=== PATIENT | male | born 1945 | race Caucasian/White ===

== ENCOUNTER 2022-08-12 19:24 | Emergency (ER) | payer MEDICARE, BC ==
[2022-08-12 20:40] VITALS: BP 140/86; PULSE 68
== END 2022-08-12 20:38 | disposition home or self-care (01) ==
LOC: MW.ED 19:24
DX: B02.9 Zoster without complications (principal); I10 Essential (primary) hypertension; Z79.899 Other long term (current) drug therapy
CPT/HCPCS: 99282; 99283

== ENCOUNTER 2023-01-11 09:36 | Emergency (ER) | payer MEDICARE, BC ==
[2023-01-11] MEDS ORDERED: Sodium Chloride 0.9% 10 ML Syringe FLUSH PRN (09:53)
[2023-01-11] MEDS ORDERED: Sodium Chloride 0.9% 2.5 ML Syringe FLUSH PRN (09:53)
[2023-01-11] MEDS ORDERED: Sodium Chloride 0.9% 500 ML IV SCH (10:00)
[2023-01-11] MEDS: Diltiazem 25 MG/5 ML SDV IVPUSH ONE ×3 (10:06→10:13)
[2023-01-11 10:41] LABS: BASOPHILS PERCENT AUTO 0.8 % (0.0-1.5); EOSINOPHILS ABSOLUTE AUTO 0.1 K/uL (0.0-0.7); EOSINOPHILS PERCENT AUTO 1.7 % (0.0-7.0); HEMATOCRIT 41.3 % (38.0-50.0); HEMOGLOBIN 14.8 g/dL (13.0-17.0); LYMPHOCYTES ABSOLUTE AUTO 1.3 K/uL (0.6-2.4); LYMPHOCYTES PERCENT AUTO 25.4 % (16.0-40.0); MEAN CORPUSCULAR HEMOGLOBIN 31.7 pg (27.0-32.0); MEAN CORPUSCULAR HGB CONC 35.8 g/dL (31.0-37.0); MEAN CORPUSCULAR VOLUME 88.4 fL (80.0-98.0); MONOCYTES ABSOLUTE AUTO 0.7 K/uL (0.0-0.8); MONOCYTES PERCENT AUTO 12.9 % (0.0-15.0); NEUTROPHILS ABSOLUTE AUTO 3.1 K/uL (1.4-5.7); NEUTROPHILS PERCENT AUTO 59.2 % (48.0-80.0); PLATELET COUNT,PLT 161 K/uL (150-400); RED BLOOD CELL COUNT 4.67 M/uL (4.50-5.90); WHITE BLOOD CELL COUNT,WBC 5.19 K/uL (4.0-11.0)
[2023-01-11 10:55] LABS: INR 1.01 (0.86-1.11)
[2023-01-11 11:12] LABS: A/G RATIO 1.4 (0.9-1.6); ALBUMIN 4.5 g/dL (3.4-5.0); CALCIUM 9.7 mg/dL (8.5-10.1); CARBON DIOXIDE,CO2 26.2 mmol/L (21.0-32.0); CREATININE 1.4 mg/dL (0.8-1.3); EST CRCL DRUG DOSING (CG) 45.63 mL/min; POTASSIUM,K 4.6 mmol/L (3.5-5.1); PROTEIN TOTAL,TP 7.7 g/dL (6.4-8.2); TSH ULTRASENSITIVE 1.22 uIU/mL (0.36-3.74)
[2023-01-11] MEDS ORDERED: Apixaban 5 MG Tab PO ONE (12:34)
[2023-01-11 12:56] VITALS: BP 160/67; PULSE 63
== END 2023-01-11 13:09 | disposition home or self-care (01) ==
LOC: MW.ED 09:36
DX: I48.91 Unspecified atrial fibrillation (principal); I10 Essential (primary) hypertension; Z79.01 Long term (current) use of anticoagulants
CPT/HCPCS: 36415; 71045; 80053; 83690; 83880; 84443; 84484; 85025; 85610; 93005; 96361; 96374; 99285; A9270; J3490; J7040; 93010; 99284

== ENCOUNTER 2023-02-01 07:42 | Emergency (ER) | payer MEDICARE, BC ==
[2023-02-01] MEDS ORDERED: Diltiazem 25 MG/5 ML SDV IVPUSH ONE (07:57)
[2023-02-01 08:06] LABS: BASOPHILS ABSOLUTE AUTO 0.1 K/uL (0.0-0.1); BASOPHILS PERCENT AUTO 2.4 % (0.0-1.5); EOSINOPHILS ABSOLUTE AUTO 0.1 K/uL (0.0-0.7); EOSINOPHILS PERCENT AUTO 2.1 % (0.0-7.0); HEMATOCRIT 39.2 % (38.0-50.0); LYMPHOCYTES ABSOLUTE AUTO 1.2 K/uL (0.6-2.4); LYMPHOCYTES PERCENT AUTO 31.2 % (16.0-40.0); MEAN CORPUSCULAR HEMOGLOBIN 31.3 pg (27.0-32.0); MEAN CORPUSCULAR HGB CONC 35.7 g/dL (31.0-37.0); MEAN CORPUSCULAR VOLUME 87.5 fL (80.0-98.0); MONOCYTES ABSOLUTE AUTO 0.6 K/uL (0.0-0.8); MONOCYTES PERCENT AUTO 14.4 % (0.0-15.0); NEUTROPHILS ABSOLUTE AUTO 1.9 K/uL (1.4-5.7); NEUTROPHILS PERCENT AUTO 49.9 % (48.0-80.0); NRBC ABSOLUTE 0 K/uL; PLATELET COUNT,PLT 176 K/uL (150-400); RED BLOOD CELL COUNT 4.48 M/uL (4.50-5.90); WHITE BLOOD CELL COUNT,WBC 3.81 K/uL (4.0-11.0)
[2023-02-01 08:32] LABS: A/G RATIO 1.2 (0.9-1.6); CALCIUM 9.5 mg/dL (8.5-10.1); CARBON DIOXIDE,CO2 24.6 mmol/L (21.0-32.0); CREATININE 1.4 mg/dL (0.8-1.3); EST CRCL DRUG DOSING (CG) 49.94 mL/min; MAGNESIUM 1.9 mg/dL (1.8-2.4); POTASSIUM,K 3.4 mmol/L (3.5-5.1); PROTEIN TOTAL,TP 7.4 g/dL (6.4-8.2); TSH ULTRASENSITIVE 1.32 uIU/mL (0.36-3.74)
[2023-02-01] MEDS ORDERED: Potassium Chloride 20 MEQ Tab.ER PO ONE (08:34)
[2023-02-01 09:15] VITALS: BP 124/77; PULSE 76
== END 2023-02-01 09:30 | disposition home or self-care (01) ==
LOC: MW.ED 07:42
DX: I48.91 Unspecified atrial fibrillation (principal); I10 Essential (primary) hypertension; Z79.01 Long term (current) use of anticoagulants
CPT/HCPCS: 36415; 71045; 80053; 83735; 83880; 84443; 84484; 85025; 93005; 96374; 99285; A9270; J3490; 93010; 99284

== ENCOUNTER 2024-06-27 16:11 | Observation (INO) | payer MEDICARE, BC ==
[2024-06-27] MEDS ORDERED: Sodium Chloride 0.9% 2.5 ML Syringe FLUSH PRN (16:16)
[2024-06-27] MEDS ORDERED: Sodium Chloride 0.9% 10 ML Syringe FLUSH PRN (16:16)
[2024-06-27 16:27] LABS: BASOPHILS ABSOLUTE AUTO 0.06 K/uL (0.00-0.20); BASOPHILS PERCENT AUTO 0.8 % (0.0-1.0); EOSINOPHILS ABSOLUTE AUTO 0.15 K/uL (0.00-0.45); EOSINOPHILS PERCENT AUTO 1.9 % (0.0-6.0); HEMATOCRIT 36.1 % (42.0-52.0); HEMOGLOBIN 12.6 g/dL (14.0-18.0); IMMATURE GRAN ABSOLUTE AUTO 0.02 K/uL (0.00-0.05); IMMATURE GRAN PERCENT AUTO 0.3 % (0.0-0.4); LYMPHOCYTES PERCENT AUTO 26.5 % (24.0-44.0); MEAN CORPUSCULAR HEMOGLOBIN 32.2 pg (28.0-32.0); MEAN CORPUSCULAR HGB CONC 34.9 g/dL (32.0-36.0); MEAN CORPUSCULAR VOLUME 92.3 fL (83.0-99.0); MEAN PLATELET VOLUME 8.8 fL (9.4-12.4); MONOCYTES ABSOLUTE AUTO 0.83 K/uL (0.00-0.80); MONOCYTES PERCENT AUTO 10.5 % (0.0-8.0); NEUTROPHILS ABSOLUTE AUTO 4.77 K/uL (1.80-7.70); PLATELET COUNT,PLT 160 K/uL (150-400); RED BLOOD CELL COUNT 3.91 M/uL (4.52-5.90); WHITE BLOOD CELL COUNT,WBC 7.93 K/uL (3.9-11.3)
[2024-06-27 16:36] LABS: INR 1.02 (0.86-1.11)
[2024-06-27] MEDS: Iopamidol 755 Mg/ML 100 ML Bottle IVPUSH ONE (16:41)
[2024-06-27 17:00] LABS: A/G RATIO 1.2 (0.9-1.6); ALBUMIN 3.8 g/dL (3.4-5.0); BILIRUBIN TOTAL 0.5 mg/dL (0.2-1.0); CALCIUM 9.1 mg/dL (8.5-10.1); CARBON DIOXIDE,CO2 26.8 mmol/L (21.0-32.0); CREATININE 1.6 mg/dL (0.8-1.3); EST CRCL DRUG DOSING (CG) 38.05 mL/min; POTASSIUM,K 3.8 mmol/L (3.5-5.1)
[2024-06-27] MEDS: Aspirin 81 MG Tab.Chew PO SCH (18:24)
[2024-06-27 18:26] LABS: HEMOGLOBIN A1C 5.4 %
[2024-06-27 19:07] LABS: FOLIC ACID 49.8 ng/mL (8.60-58.90); TSH ULTRASENSITIVE 1.67 uIU/mL (0.36-3.74)
[2024-06-27] MEDS: atorvaSTATin 20 MG Tab PO SCH (20:14)
[2024-06-27] MEDS: Apixaban 5 MG Tab PO SCH (20:14)
[2024-06-27] MEDS: Flecainide 100 MG Tab PO SCH (20:15)
[2024-06-27] MEDS: Metoprolol Tartrate 25 MG Tab PO SCH (20:15)
[2024-06-28] MEDS ORDERED: Acetaminophen 325 MG Tab PO PRN (01:20)
[2024-06-28 05:56] LABS: BASOPHILS ABSOLUTE AUTO 0.06 K/uL (0.00-0.20); EOSINOPHILS ABSOLUTE AUTO 0.13 K/uL (0.00-0.45); EOSINOPHILS PERCENT AUTO 2.2 % (0.0-6.0); HEMATOCRIT 35.6 % (42.0-52.0); HEMOGLOBIN 12.5 g/dL (14.0-18.0); IMMATURE GRAN ABSOLUTE AUTO 0.02 K/uL (0.00-0.05); IMMATURE GRAN PERCENT AUTO 0.3 % (0.0-0.4); LYMPHOCYTES ABSOLUTE AUTO 1.25 K/uL (1.00-4.80); LYMPHOCYTES PERCENT AUTO 20.8 % (24.0-44.0); MEAN CORPUSCULAR HEMOGLOBIN 32.1 pg (28.0-32.0); MEAN CORPUSCULAR HGB CONC 35.1 g/dL (32.0-36.0); MEAN CORPUSCULAR VOLUME 91.3 fL (83.0-99.0); MEAN PLATELET VOLUME 8.4 fL (9.4-12.4); MONOCYTES ABSOLUTE AUTO 0.68 K/uL (0.00-0.80); MONOCYTES PERCENT AUTO 11.3 % (0.0-8.0); NEUTROPHILS ABSOLUTE AUTO 3.86 K/uL (1.80-7.70); NEUTROPHILS PERCENT AUTO 64.4 % (41.0-71.0); PLATELET COUNT,PLT 150 K/uL (150-400)
[2024-06-28 06:23] LABS: CARBON DIOXIDE,CO2 26.6 mmol/L (21.0-32.0); CREATININE 1.2 mg/dL (0.8-1.3); EST CRCL DRUG DOSING (CG) 57.34 mL/min; POTASSIUM,K 3.9 mmol/L (3.5-5.1)
[2024-06-28] MEDS: Potassium Chloride 10 MEQ Tab.ER PO SCH (08:00)
[2024-06-28] MEDS: Gadobenate Dimeglumine 529 MG/ML 20 ML SDV IVPUSH ONE (13:53)
[2024-06-28 15:29] VITALS: BP 172/75; PULSE 56
== END 2024-06-28 17:35 | disposition home or self-care (01) ==
LOC: MW.ED 16:11 → MW.MS 18:00
PROVIDERS: ADMIT Family Medicine; ATTEND Family Medicine
DX: I63.89 Other cerebral infarction (principal); I48.91 Unspecified atrial fibrillation; I10 Essential (primary) hypertension; Z79.01 Long term (current) use of anticoagulants; Z79.899 Other long term (current) drug therapy
CPT/HCPCS: 36415; 70450; 70450-26; 70496; 70496-26; 70498; 70498-26; 70544; 70544-26; 70549; 70549-26; 70553; 70553-26; 71045; 71045-26; 80048; 80053; 80061; 82607; 82746; 82947; 83036; 84443; 84484; 85025; 85610; 93005; 93010; 93306; 97161-GP; 99223; 99239; 99283; 99285; A9270-GY; A9577; G0378; Q9967

== ENCOUNTER 2024-12-11 06:08 | Emergency (ER) | payer MEDICARE, BC ==
[2024-12-11 06:24] VITALS: BP 100/48; PULSE 68
== END 2024-12-11 06:36 | disposition left against medical advice (07) ==
LOC: MW.ED 06:08
DX: Z53.21 Procedure and treatment not carried out due to patient leaving prior to being seen by health care provider (principal)